=== PATIENT | male | born 1970 | race Two or more races ===

== ENCOUNTER 2020-04-16 15:35 | Emergency (ER) | payer OTHER ==
[~2020-04-16] VITALS: Ht 177.8 cm; Wt 79.8 kg
--- NOTE | 2020-04-16 15:45 | NUR ---
ER BED 3 PT BIB SELF. CHIEF COMPLAINT OF L SIDE OF THE CHEST, DRAINING WOUND, PER PT HE WAS S/P SURGERY 'INSERTION OF DEFFIBRILLATOR' ABOUT A WEEK AGO. VS CHECK. HOOKED ON MONITOR. AWAITING TO BE SEEN BY
[2020-04-16] MEDS ORDERED: CEPH-570 PO (16:02)
[2020-04-16] MEDS ORDERED: VALS80TA2 PO (16:02)
[2020-04-16] MEDS ORDERED: FURO-145 PO (16:02)
[2020-04-16] MEDS ORDERED: ASPI-1169 PO (16:02)
[2020-04-16] MEDS ORDERED: LACT1CAP71 PO (16:02)
[2020-04-16] MEDS ORDERED: SPIR25TA6 PO (16:02)
[2020-04-16] MEDS ORDERED: METO25TA20 PO (16:02)
[2020-04-16] MEDS ORDERED: CLOP75TA15 PO (16:02)
[2020-04-16] MEDS ORDERED: HYDR-4384 PO (16:02)
--- NOTE | 2020-04-16 16:05 | NUR ---
WOUND CARE WOUND CARE DONE. PT TOLERATED WELL.
[2020-04-16 16:37] LABS: BASOPHILS # (AUTO) 0.1 /CMM (0.0-0.2); BASOPHILS % (AUTO) 0.9 % (0.0-2.0); EOSINOPHILS % (AUTO) 3.1 % (0.0-6.0); HEMATOCRIT 37 % (39-51); HEMOGLOBIN 12.2 g/dL (13.5-17.5); LYMPHOCYTES # (AUTO) 1.3 /CMM (0.8-4.8); MEAN CORPUSCULAR HGB CONC 33 g/dl (31.0-36.0); MEAN CORPUSCULAR VOLUME 82 fL (80-96); MONOCYTES # (AUTO) 0.8 /CMM (0.1-1.30); MONOCYTES % (AUTO) 12.9 % (2.0-12.0); NEUTROPHILS # (AUTO) 3.8 /CMM (1.8-8.9); NEUTROPHILS % (AUTO) 62.1 % (43.0-81.0); PLATELET COUNT (AUTO) 257 /CMM (150-450); RED BLOOD CELL COUNT(AUTO) 4.54 MIL/uL (4.5-6.0); WHITE BLOOD COUNT (AUTO) 6.1 K/uL (4.3-11.0)
--- NOTE | 2020-04-16 16:51 | NUR ---
D/C HOME Patient discharged to home in stable condition. Written and verbal after care instructions given. Patient verbalizes understanding of instruction.
[2020-04-16 16:55] VITALS: BP 162/118
== END 2020-04-16 16:56 | disposition home or self-care (01) ==
LOC: ER 15:42
DX: S21.102A Unspecified open wound of left front wall of thorax without penetration into thoracic cavity, initial encounter (principal); I10 Essential (primary) hypertension; Z98.890 Other specified postprocedural states; Z88.8 Allergy status to other drugs, medicaments and biological substances; Z60.2 Problems related to living alone; Z79.899 Other long term (current) drug therapy; Z79.82 Long term (current) use of aspirin; X58.XXXA Exposure to other specified factors, initial encounter; Y93.89 Activity, other specified; Y92.89 Other specified places as the place of occurrence of the external cause; Y99.8 Other external cause status
CPT/HCPCS: 36415; 85025; 99283; A6403

== ENCOUNTER 2020-04-16 21:04 | Emergency (ER) | payer OTHER ==
[~2020-04-16] VITALS: Ht 177.8 cm; Wt 79.8 kg
[~2020-04-16 21:04] MED LIST: ASPI-1169 PO; CEPH-570 PO; CLOP75TA15 PO; FURO-145 PO; HYDR-4384 PO; LACT1CAP71 PO; METO25TA20 PO; SPIR25TA6 PO; VALS80TA2 PO
[2020-04-16] MEDS ORDERED: GELATIN SPONGE,ABSORBABLE 1 SPONGE SPONGE TP ONE ×2 (21:19→21:30)
== END 2020-04-16 21:50 | disposition home or self-care (01) ==
LOC: EDUNIT# 21:04 → ER 21:05
DX: L76.32 Postprocedural hematoma of skin and subcutaneous tissue following other procedure (principal); I10 Essential (primary) hypertension; Z79.82 Long term (current) use of aspirin; Z95.810 Presence of automatic (implantable) cardiac defibrillator; Z88.8 Allergy status to other drugs, medicaments and biological substances; Z60.2 Problems related to living alone; Z79.899 Other long term (current) drug therapy
CPT/HCPCS: 99282; A6253